=== PATIENT | female | born 1990 | race African-American/Black ===

== ENCOUNTER 2022-12-27 07:56 | Emergency (ER) | payer MEDICAID, OTHER ==
[~2022-12-27] VITALS: Ht 172.7 cm; Wt 113.6 kg
[2022-12-27 08:41] VITALS: BP 143/79
[2022-12-27] MEDS ORDERED: HYDROcodone-ACET 10/325MG TAB PO ONE (09:45)
[2022-12-27] MEDS ORDERED: HYDR-4798 PO (09:56)
== END 2022-12-27 09:59 | disposition home or self-care (01) ==
LOC: ER 07:56
DX: S92.354A Nondisplaced fracture of fifth metatarsal bone, right foot, initial encounter for closed fracture (principal); X50.1XXA Overexertion from prolonged static or awkward postures, initial encounter; Y93.89 Activity, other specified; Y92.89 Other specified places as the place of occurrence of the external cause; Y99.8 Other external cause status
CPT/HCPCS: 29515; 73610; 73630

== ENCOUNTER 2024-09-15 22:09 | Emergency (ER) | payer MEDICAID, OTHER ==
[~2024-09-15] VITALS: Ht 172.7 cm; Wt 72.7 kg
[~2024-09-15 22:09] MED LIST: CLIN1CAP70 PO; DEXT1LOZ10 MT; HYDR-4798 PO; IBUP-1456 PO; IBUP1TAB5 PO; METH-1181 PO; PRED20TA2 PO
[2024-09-15] MEDS ORDERED: IBUP1TAB5 PO (22:26)
[2024-09-15] MEDS ORDERED: AZIT500T66 PO (22:26)
--- NOTE | 2024-09-15 22:26 | ED.PDOC ---
Eye-HPI HPI Comments THIS IS A 33-YEAR-OLD FEMALE PRESENTS TO THE ED CHIEF COMPLAINT SORE THROAT AND BILATERAL EAR PAIN PATIENT STATES SYMPTOMS STARTED PROXIMALLY 3 DAYS AGO HAS INCREASINGLY GOTTEN WORSE OVER THE PAST 24 HOURS HAS BEEN TAKING [id number] TYLENOL OR MOTRIN WITH LITTLE RELIEF. PATIENT REPORTS HISTORY OF ACUTE TONSILLITIS. SHE STATES TACTILE FEVERS AT HOME NOT MEASURED. DENIES DIFFICULTY BREATHING, SHORTNESS OF BREATH, CHEST PAIN DIFFICULTY SWALLOWING, VOMITING OR DIARRHEA. SHE REPORTS NO RECENT TRAVEL OR ILL CONTACTS Chief Complaint: Sore Throat Time Seen by MD: 22:17 Primary Care Provider: VILMA Reviewed Notes: Nurses Notes, Medications, Allergies Allergies: Coded Allergies: NO KNOWN ALLERGIES (Unverified , 12/27/22) Home Meds Active Scripts Ibuprofen Micronized (Ibuprofen) 600 Mg Tab, 1 TAB PO QID PRN for 4 Days, #16 TAB Prov:MARIFER DEVLIN EQUITY RESEARCH ANALYST 09/15/24 Azithromycin (Azithromycin) 500 Mg Tab, 1 TAB PO DAILY for 5 Days, #5 TAB Prov:MARIFER DEVLIN EQUITY RESEARCH ANALYST 09/15/24 Ibuprofen (Ibuprofen) 800 Mg Tab, 1 TAB PO TID for 7 Days, #21 TAB 1 Refill Prov:MARIFER DEVLIN EQUITY RESEARCH ANALYST 06/04/24 Methocarbamol (Methocarbamol) 500 Mg Tab, 500 MG PO BID for 5 Days, #10 TAB Prov:MARIFER DEVLIN EQUITY RESEARCH ANALYST 06/04/24 Ibuprofen Micronized (Ibuprofen) 600 Mg Tab, 1 TAB PO Q6HPRN PRN, #20 TAB as needed for pain Prov:JAGJIT GONSALEZ Q CLASSROOM AIDE 12/10/23 Dextromethorphan-Benzocaine (CEPACOL SORE THROAT & COU) 1 Alfreda Alfreda, 1 ALFREDA MT Q4HPRN PRN, #24 ALFREDA as needed for sorethroat Prov:JAGJIT GONSALEZ Q CLASSROOM AIDE 12/10/23 Prednisone (Prednisone) 20 Mg Tab, 1 TAB PO BID for 5 Days, #10 TAB Start tomorrow with food Prov:JAGJIT GONSALEZ Q CLASSROOM AIDE 12/10/23 Clindamycin Hcl (Clindamycin Hcl) 300 Mg Cap, 1 CAP PO TID for 10 Days, #30 CAP Prov:JAGJIT GONSALEZ Q CLASSROOM AIDE 12/10/23 Hydrocodone-Acetaminophen (Hydrocodone Bitartrate/AC 10-325 mg) 1 Tab Tab, 1 TAB PO BID, #10 TAB Prov:SIDDHARTH GERBER HERNANDEZ 12/27/22 Past Medical History PAST MEDICAL HISTORY: Denies Surgical History: Denies all surgeries POSTMASTER History: No Pertinent POSTMASTER History Family History Family History: Reviewed,noncontributory to illness Social History Smoker: Non-Smoker Alcohol: Denies ETOH Use Drugs: Denies Drug Use Lives In: Home Constitutional: reports: fever; denies: chills, diaphoresis, fatigue, malaise, sweats, weakness, others EENTM: reports: ear pain, throat pain, throat swelling; denies: blurred vision, double vision, ear bleeding, ear discharge, ear drainage, ear ringing, eye pain, eye redness, hearing loss, mouth pain, mouth swelling, nasal discharge, nose bleeding, nose congestion, nose pain, photophobia, tearing, voice changes, others Respiratory: denies: cough, hemoptysis, orthopnea, SOB at rest, shortness of breath, SOB with excertion, stridor, wheezing, others Cardiovascular: denies: chest pain, dizzy spells, diaphoresis, Dyspnea on exertion, edema, irregular heart beat, left arm pain, lightheadedness, palpita tions, PND, syncope, others Gastrointestinal: denies: abdomen distended, abdominal pain, blood streaked bret wels, constipated, diarrhea, dysphagia, difficulty swallowing, hematemesis, melena, nausea, poor appetite, poor fluid intake, rectal bleeding, rectal pain, vomiting, others Genitourinary: denies: abnormal vagina bleeding, burning, dyspareunia, dysuria, flank pain, frequency, hematuria, incontinence, pain, , vagina discharge, urgency, others Neurological: denies: dizziness, fainting, headache, left sided numbness, left sided weakness, numbness, paresthesia, pre-existing deficit, right sided numbness, right sided weakness, seizure, speech problems, tingling, tremors, weakness, others Musculoskeletal: denies: back pain, gout, joint pain, joint swelling, muscle pain, muscle stiffness, neck pain, others Integumetry: denies: bruises, change in color, change in hair/nails, dryness, laceration, lesions, lumps, rash, wounds, others Allergic/Immunocompromised: denies: Difficulty Healing, Frequent Infections, Hives, Itching, others Hematologic/Lymphatic: denies: anemia, blood clots, easy bleeding, easy bruis ing, swollen glands, others Endocrine: denies: excessive hunger, excessive sweating, excessive thirst, exc essive urination, flushing, intolerance to cold, intolerance to heat, unexplained weight gain, unexplained weight loss, others Psychiatric: denies: anxiety, bipolar disorder, depression, hopeless, panic disorder, schizophrenia, sleepless, suicidal, others Physical Exam General Appearance: No Apparent Distress, Normal HEENT: Pharyngeal Erythema, TMs Normal, Tonsillar Exudate (TONSILS GRADE 4 WITH EXUDATE BILATERAL NO NOTED PERITONSILLAR ABSCESS) Neck: Full Range of Motion, Non-Tender Respiratory: Lungs Clear, No Respiratory Distress, Normal Breath Sounds Cardiovascular: No Edema, No JVD, No Murmur, No Gallop, Normal Peripheral Pulses, Regular Rate/Rhythm Breast Exam: Deferred Gastrointestinal: No Organomegaly, Non Tender, No Pulsatile Mass, Normal Bowel Sounds, Soft Genitalia: Deferred Pelvic: Deferred Rectal: Deferred Extremities: Normal capillary refill, Normal inspection, Normal range of motion, Non-tender, No pedal edema Musculoskeletal : Apperance: Normal Neurologic: Alert, steam distribution supervisor II-XII nml as Tested, No Motor Deficits, Normal Affect, Normal Mood, No Sensory Deficits Cerebellar Function: Normal Reflexes: Normal Skin: Dry, Normal Color, Warm Lymphatic: No Adenopathy Was a procedure done? Was a procedure done?: No EENT DIFF Eye: N/A Sore Throat: Epiglottitis, Sky's Angina, Peritonsillar Abscess, Peritonsillar Cellulitis, Streptococcal, Viral Pharyngitis, URI X-Ray, Labs, Meds, VS Vital Signs Date Time Temp Pulse Resp B/P (MAP) Pulse Ox O2 Delivery O2 Flow Rate FiO2 09/15/24 22:17 98.0 90 20 158/82 (107) 100 X-Ray, Labs, Meds, VS Comment PATIENT GIVEN DECADRON 10 MG IM FOR THE THROAT PAIN AND SWELLING NOTES IMPROVEMENT REQUESTING DISCHARGE AT THIS TIME. SCRIPT AZITHROMYCIN 500 MG ONCE DAILY X5 DAYS DUE TO HER PENICILLIN ALLERGY. ADVISED TO REST INCREASE P.O. FLUIDS. FOLLOW UP WITH PCP IN 2-3 DAYS NECESSARY, ER RETURN PRECAUTIONS GIVEN PATIENT INDICATED UNDERSTANDING AGREES WITH DISCHARGE PLAN OF CARE. Time of 1ST Reevaluation: 22:26 Reevaluation 1ST: Improved Patient Education/Counseling: Diagnosis, Treatment, Prognosis, Need For Follow Up Family Education/Counseling: Diagnosis, Treatment, Prognosis, Need For Follow Up Departure 1 Departure Time of Disposition: 22:25 Impression: Primary Impression: Exudative tonsillitis Disposition: HOME / SELF CARE / HOMELESS Condition: Stable e-Prescriptions Ibuprofen Micronized (Ibuprofen) 600 Mg Tab 1 TAB PO QID PRN for 4 Days, #16 TAB Prov: MARIFER DEVLIN 09/15/24 Azithromycin (Azithromycin) 500 Mg Tab 1 TAB PO DAILY for 5 Days, #5 TAB Prov: MARIFER DEVLIN 09/15/24 Critical Care Note Critical Care Time?: No Stability Stability form required: MARIFER Dickey Sep 15, 2024 22:26
[2024-09-15 23:10] VITALS: BP 139/87; PULSE 100; RESP 18; TEMP 98; O2SAT 98
== END 2024-09-15 23:10 | disposition home or self-care (01) ==
LOC: ER 22:09
DX: J03.90 Acute tonsillitis, unspecified (principal); Z79.1 Long term (current) use of non-steroidal anti-inflammatories (NSAID); Z79.52 Long term (current) use of systemic steroids

== ENCOUNTER 2025-01-24 01:54 | Emergency (ER) | payer MEDICAID ==
[~2025-01-24] VITALS: Ht 172.7 cm; Wt 91.8 kg
[2025-01-24 02:49] VITALS: BP 148/89; PULSE 85; RESP 18; TEMP 97.5; O2SAT 97
[2025-01-24] MEDS ORDERED: IBUP-1456 PO (02:58)
[2025-01-24] MEDS: IBUPROFEN 800 MG TAB PO ONE (03:00)
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
== END 2025-01-24 03:04 | disposition home or self-care (01) ==
LOC: ER 01:54
DX: M77.11 Lateral epicondylitis, right elbow (principal); Z79.1 Long term (current) use of non-steroidal anti-inflammatories (NSAID); Z79.899 Other long term (current) drug therapy; Z79.52 Long term (current) use of systemic steroids; Z98.51 Tubal ligation status; Z88.0 Allergy status to penicillin